=== PATIENT | female | born 2005 | race Caucasian/White ===

== ENCOUNTER 2023-01-03 14:49 | Outpatient (CLI) | payer OTHER ==
[~2023-01-03] VITALS: Ht 162.6 cm; Wt 57.2 kg
[2023-01-03] MEDS ORDERED: PRENATAL TABLE1 EAC4 PO (15:04)
== END 2023-01-04 11:29 | disposition home or self-care (01) ==
LOC: OBS/DEL 14:49
PROVIDERS: ATTEND Obstetrics & Gynecology Gynecology
DX: O26.892 Other specified pregnancy related conditions, second trimester (principal); K59.00 Constipation, unspecified; Z3A.24 24 weeks gestation of pregnancy

== ENCOUNTER 2023-02-16 09:55 | Outpatient (CLI) | payer OTHER ==
[~2023-02-16 09:55] MED LIST: PRENATAL TABLE1 EAC4 PO
== END 2023-02-16 10:26 | disposition home or self-care (01) ==
LOC: SONOGRAMA 09:55
PROVIDERS: ATTEND Obstetrics & Gynecology
DX: N63.21 Unspecified lump in the left breast, upper outer quadrant (principal)

== ENCOUNTER 2023-03-28 18:52 | Outpatient (CLI) | payer OTHER ==
[~2023-03-28] VITALS: Ht 162.6 cm; Wt 64.4 kg
[2023-03-28 19:41] LABS: PH,URINE 6.5 (5.0-8.0); URINE APPEARANCE Clear; URINE BILIRRUBIN Negative (NEGATIVE); URINE BLOOD Negative; URINE COLOR Yellow; URINE GLUCOSE Negative (NEGATIVE); URINE LEUKOCYTE Trace; URINE NITRATE Negative; URINE PROTEIN Negative (NEGATIVE)
[2023-03-28 19:45] LABS: URINE BACTERIA 118.4 uL (0.0-1933); URINE EPITHELIAL CELLS 7.7 uL (0.0-38.8); URINE RBC 15.2 uL (0.0-20.8); URINE WBC 6.3 uL (0.0-23.2)
[2023-03-28 19:49] LABS: HEMATOCRIT 27.4 % (36.0-45.00); HEMOGLOBIN 8.7 g/dL (12.0-15.00); MEAN CELL VOLUME 71.5 fL (80.00-100.00); MEAN CORPUSCULAR HEMOGLOBIN 22.7 pg (27.00-32.0); MEAN CORPUSCULAR HGB CONC 31.9 g/dl (32.0-36.0); PLATELET COUNT 362 K/uL (150-450); RED BLOOD COUNT 3.82 M/uL (4.00-6.00); RED CELL DISTRIBUTION WIDTH 17.6 % (11.5-14.5)
== END 2023-03-29 10:16 | disposition home or self-care (01) ==
LOC: OBS/DEL 18:52
PROVIDERS: ATTEND Obstetrics & Gynecology Gynecology
DX: O26.893 Other specified pregnancy related conditions, third trimester (principal); R10.2 Pelvic and perineal pain; Z3A.36 36 weeks gestation of pregnancy

== ENCOUNTER 2023-04-13 22:57 | Inpatient (IN) | payer OTHER ==
[~2023-04-13] VITALS: Ht 162.6 cm; Wt 68.0 kg
[2023-04-14 03:05] LABS: HEMATOCRIT 29.1 % (36.0-45.00); HEMOGLOBIN 9.2 g/dL (12.0-15.00); MEAN CELL VOLUME 71.1 fL (80.00-100.00); MEAN CORPUSCULAR HEMOGLOBIN 22.4 pg (27.00-32.0); MEAN CORPUSCULAR HGB CONC 31.7 g/dl (32.0-36.0); PLATELET COUNT 391 K/uL (150-450); RED BLOOD COUNT 4.09 M/uL (4.00-6.00); RED CELL DISTRIBUTION WIDTH 19.5 % (11.5-14.5)
[2023-04-14 03:39] LABS: INR < 0.93; PARTIAL THROMBOPLASTIN TIME 23.4 SECONDS (22.0-34.0); PROTHROMBIN TIME 9.8 SECONDS (9.0-11.5)
[2023-04-14 03:43] LABS: ALBUMIN 2.9 gm/dL (3.4-5.0); BILIRUBIN TOTAL 0.38 mg/dL (0.3-1.2); CALCIUM 9.2 mg/dL (8.5-10.1); GFR 155.35; GLOBULINA 4.2 G/DL (2.4-3.5); POTASSIUM 3.95 mEq/L (3.5-5.1); TOTAL PROTEIN 7.1 gm/dL (6.4-8.2)
[2023-04-14 03:44] LABS: CREATININE SERUM 0.51 mg/dL (0.55-1.02)
[2023-04-15 23:05] LABS: ABG PH 7.341 (7.35-7.45); ABG PO2 40.1 mmHg (80-100); ABG pCO2 41.2 mmHg (35-45)
[2023-04-15 23:06] LABS: BASE EXCESS -3.8 mmol/l; BICARBONATE 21.7 mmol/l (23-25); o2 21 %
[2023-04-15 23:07] LABS: SaO2 70.8 %
== END 2023-04-17 14:35 | disposition home or self-care (01) | DRG 807 ==
LOC: OBS/DEL 22:57 → LDR 04-14 02:30 → OB/GYN 04-15 17:41
PROVIDERS: Obstetrics & Gynecology Maternal & Fetal Medicine; ADMIT Obstetrics & Gynecology; ATTEND Obstetrics & Gynecology
PROC: BY4FZZZ Ultrasonography of Third Trimester, Single Fetus (ICD-10-PCS; 2023-04-13)
PROC: 3E0P7VZ Introduction of Hormone into Female Reproductive, Via Natural or Artificial Opening (ICD-10-PCS; 2023-04-14)
PROC: 4A1HXCZ Monitoring of Products of Conception, Cardiac Rate, External Approach (ICD-10-PCS; 2023-04-14)
PROC: 10E0XZZ Delivery of Products of Conception, External Approach (ICD-10-PCS; principal; 2023-04-15)
PROC: 0KQM0ZZ Repair Perineum Muscle, Open Approach (ICD-10-PCS; 2023-04-15)
PROC: 0W8NXZZ Division of Female Perineum, External Approach (ICD-10-PCS; 2023-04-15)
PROC: 3E033VJ Introduction of Other Hormone into Peripheral Vein, Percutaneous Approach (ICD-10-PCS; 2023-04-15)
DX: O70.1 Second degree perineal laceration during delivery (principal); Z37.0 Single live birth; Z3A.38 38 weeks gestation of pregnancy; Z20.822 Contact with and (suspected) exposure to COVID-19